=== PATIENT | female | born 1995 | race Caucasian/White ===

== ENCOUNTER → 2022-12-28 | Outpatient (CLI) | payer OTHER | LOC: LAB 16:15 → LAB SHORT 16:15 | DX: Z34.81 Encounter for supervision of other normal pregnancy, first trimester (principal); Z3A.00 Weeks of gestation of pregnancy not specified | CPT/HCPCS: 87081; 87150 ==

== ENCOUNTER 2023-01-26 11:08 | Inpatient (IN) | payer OTHER ==
[~2023-01-26] VITALS: Ht 165.1 cm; Wt 60.0 kg
[2023-01-26] VITALS (12 sets, daily range): BP systolic 115–133; BP diastolic 68–84
[2023-01-26] MEDS ORDERED: PRENATAL TABLE1 EAC2 PO (12:00)
[2023-01-26] MEDS ORDERED: FAMO20 PO (12:01)
[2023-01-26] MEDS ORDERED: ACYC400 PO (12:01)
[2023-01-26 12:05] LABS: BASOPHILS ABSOLUTE AUTO 0.02 K/mm3 (0.00-0.23); BASOPHILS PERCENT AUTO 0 % (0-2); EOSINOPHILS ABSOLUTE AUTO 0.01 K/mm3 (0.00-0.68); EOSINOPHILS PERCENT AUTO 0 % (0-6); Hematocrit 33.7 % (33.0-51.0); Hemoglobin 10.6 g/dL (11.5-16.0); IMMATURE GRAN ABSOLUTE AUTO 0.06 K/mm3 (0.00-0.10); IMMATURE GRAN PERCENT AUTO 0 % (0-1); LYMPHOCYTES ABSOLUTE AUTO 1.44 K/mm3 (0.84-5.20); LYMPHOCYTES PERCENT AUTO 10 % (21-46); MONOCYTES ABSOLUTE AUTO 0.84 K/mm3 (0.16-1.47); MONOCYTES PERCENT AUTO 6 % (4-13); Mean Corpuscular HGB 24.2 pg (26.0-34.0); Mean Corpuscular HGB Conc 31.5 g/dL (31.5-36.5); Mean Corpuscular Volume 77 fL (80-100); Mean Platelet Volume 10.6 fL (9.1-12.4); NEUTROPHILS ABSOLUTE AUTO 12.68 K/mm3 (1.96-9.15); NEUTROPHILS PERCENT AUTO 84 % (41-73); Platelet Count 317 K/mm3 (150-400); RDW Standard Deviation 39.1 fL (35.1-46.3); Red Blood Cell Count 4.38 M/mm3 (3.80-5.20); White Blood Cell Count 15.05 K/mm3 (4.00-11.30)
[2023-01-27 00:45] VITALS: BP 124/68
[2023-01-27 03:48] VITALS: BP 122/79
[2023-01-27 07:17] VITALS: BP 125/75
== END 2023-01-27 14:27 | disposition home or self-care (01) | DRG 806 ==
LOC: OBS 11:08 → BC 11:10 → OBS 11:39 → BC 11:40
PROVIDERS: ADMIT Obstetrics & Gynecology
PROC: 10E0XZZ Delivery of Products of Conception, External Approach (ICD-10-PCS; principal; 2023-01-26)
PROC: 10907ZC Drainage of Amniotic Fluid, Therapeutic from Products of Conception, Via Natural or Artificial Opening (ICD-10-PCS; 2023-01-26)
DX: O48.0 Post-term pregnancy (principal); O98.32 Other infections with a predominantly sexual mode of transmission complicating childbirth; Z37.0 Single live birth; O99.324 Drug use complicating childbirth; Z3A.40 40 weeks gestation of pregnancy; A60.00 Herpesviral infection of urogenital system, unspecified; Z79.899 Other long term (current) drug therapy; F12.90 Cannabis use, unspecified, uncomplicated; Z87.891 Personal history of nicotine dependence
CPT/HCPCS: 36415; 85025; 86850; 86900; 86901; A9270; J2590; J7120

== ENCOUNTER → 2023-03-14 | Outpatient (CLI) | payer OTHER ==
[~2023-03-14] MED LIST: ACYC400 PO; FAMO20 PO; PRENATAL TABLE1 EAC2 PO
== END | disposition home or self-care (01) ==
LOC: LAB 17:19 → LAB SHORT 17:19
PROVIDERS: Obstetrics & Gynecology
DX: Z01.419 Encounter for gynecological examination (general) (routine) without abnormal findings (principal)
CPT/HCPCS: G0145